=== PATIENT | female | born 1990 | race Caucasian/White ===

== ENCOUNTER 2017-03-16 15:12 | Outpatient (CLI) | payer OTHER ==
--- NOTE | 2017-03-16 18:31 | CT ---
CT ABDOMEN NONCONTRAST CT PELVIS NONCONTRAST: (urolithiasis protocol) DATE: 03/16/17 HISTORY: 26-year-old female with flank pain. No information about which side the pain is, right or left. COMPARISON: None available. TECHNIQUE: IV injection of iodinated contrast media: none Oral contrast media: none FINDINGS: Other than for urolithiasis, the lack of IV and oral contrast limits the evaluation. There is a 4 x 4 x 5 mm calculus at the left renal upper pole. No other calculi in the left kidney. There is a tiny 1 mm calculus in the right renal lower pole. There is no high grade hydronephrosis. No calculus identified in the ureters or bladder. Normal urinary bladder. Normal appendix. Within th e limitations of a noncontrast scan, no gross pathology is identified involving the abdominal aorta, adrenals, liver, or spleen. The pancreas is difficult to evaluate without IV contrast in this patie nt with little visceral fat. No small bowel dilatation. No signs of acute colonic diverticulitis. Sm all amount of free fluid in the cul-de-sac is not necessarily abnormal in a female of menstruating a ge. No pneumoperitoneum. Lung bases are clear. IMPRESSION: 1. Bilateral nephrolithiasis, with 5 mm calculus of left kidney and 1 mm calculus of right kidn ey. 2. No evidence of obstructive uropathy. GENOVEVA Craft POS: [id number]
== END 2017-03-16 15:13 | disposition home or self-care (01) ==
LOC: MADCT 15:12
PROVIDERS: ATTEND Family Medicine
DX: R10.9 Unspecified abdominal pain (principal); N20.0 Calculus of kidney
CPT/HCPCS: 74176